=== PATIENT | female | born 1975 | race Caucasian/White ===

== ENCOUNTER 2020-01-25 17:37 | Emergency (ER) | payer BC, SELFPAY ==
[2020-01-25 17:46] VITALS: BP 118/83; PULSE 104; RESP 16; TEMP 36.2; O2SAT 98
--- NOTE | 2020-01-25 18:17 | ED.URI ---
HPI - URI/Sore Throat General Chief Complaint: Upper Respiratory Infection Stated Complaint: sore throat/moncada/ear pain/cough History of Present Illness HPI Narrative: The patient, a smoker/nondrinker grade school educator, presents with a 2-day worsening of 2-week history of scratchy throat, associated with cough. This was preceded by frontal/nasal congestion for 2 weeks; no fever measured, wheeze, earache- there is some posterior nasal drip.. Related Data Home Medications Medication Instructions Recorded Confirmed alprazolam 01/25/20 bupropion HCl mg PO 01/25/20 ergocalciferol (vitamin D2) 01/25/20 [Vitamin D2] venlafaxine mg PO 01/25/20 venlafaxine mg PO 01/25/20 Allergies Allergy/AdvReac Type Severity Reaction Status Date / Time codeine Allergy Unknown VOMITING Verified 02/15/19 10:27 Penicillins Allergy Unknown HAPPENED Verified 02/15/19 10:27 WHEN A BABY Review of Systems Review of Systems: Narrative: General/Constitutional: No weight loss,fever Eyes: N0: Redness,discharge Ears/Nose/Throat: No: Epistaxis,ear discharge Respiratory: Denies: Hemoptysis Gastrointestinal: No Vomiting, Bleeding-rectal Skin: No Lumps, eruption Neurologic: No Focal Weakness,Sz Hematologic: Denies: Petechiae/Purpura Psychiatric: No: Suicida ideationl All Other Systems: Reviewed and Negative PMFSH Comments At time of signature, agree with nursing past medical, surgical, social and family history. There is no relevant family history pertinent to the presenting complaint Exam Narrative: Exam Narrative: General Appearance: Well appearing, Well nourished EYE: PERRLA, Conjunctiva clear Ears: Auditory canal normal, TM normal Nose: Rhinorrhea, Mucousal erythema Mouth/Throat: MM moist, Uvula midline, Pharyngeal erythema Neck: Supple, No adenopathy Respiratory: No respiratory distress, Breath sounds equal, Clear to auscultation Cardiovascular: RRR, No JVD Musculoskeletal: Non tender, Normal strength Skin: Warm, Dry Neurological: A&O x3, CN II-XII intact Psychiatric: Normal mood, Normal affect Course Vital Signs Vital signs: Vital Signs Temperature 97.2 F L 01/25/20 17:46 Pulse Rate 104 H 01/25/20 17:46 Respiratory Rate 16 01/25/20 17:46 Blood Pressure 118/83 01/25/20 17:46 Pulse Oximetry 98 01/25/20 17:46 Temperature 97.2 F L 01/25/20 17:46 Pulse Rate 104 H 01/25/20 17:46 Respiratory Rate 16 01/25/20 17:46 Blood Pressure 118/83 01/25/20 17:46 Pulse Oximetry 98 01/25/20 17:46 MDM - URI/Sore Throat Lab Data Labs: Influenza A Screen Negative Reference Range: Negative Influenza B Screen Negative Reference Range: Negative Discharge Plan Discharge Clinical Impression: Pharyngitis Qualifiers: Pharyngitis/tonsillitis etiology: unspecified etiology Qualified Code(s): J02.9 - Acute pharyngitis, unspecified Patient Disposition: Home, Self-Care Condition: Stable Instructions: Antibiotic Form, Pharyngitis (ED) Prescriptions: New azithromycin 250 mg tablet See Rx Instructions .ROUTE .COMPLEX Qty: 6 RF: 0 Lidocaine Viscous 2 % solution 5 ml MUCOUS MEM QID PRN (Reason: pain) Qty: 100 RF: 0 codeine-guaifenesin 10-100 mg/5 mL liquid 7.5 ml PO Q6H PRN (Reason: cough) Qty: 118 RF: 0 No Action venlafaxine 75 mg capsule,extended release 24hr PO RF: 0 venlafaxine 150 mg capsule,extended release 24hr PO RF: 0 alprazolam 0.5 mg tablet RF: 0 ergocalciferol (vitamin D2) [Vitamin D2] 1,250 mcg (50,000 unit) capsule RF: 0 bupropion HCl 300 mg tablet extended release 24 hr PO RF: 0 Follow-up/Referrals: Aye,MIGUEL Leon [Primary Care Provider] - Stand Alone Forms: Work/School Release IP
== END 2020-01-25 18:22 | disposition home or self-care (01) ==
PROVIDERS: Emergency Provider Emergency Medicine; PCP Physician Assistant
DX: J02.9 Acute pharyngitis, unspecified (principal)
CPT/HCPCS: 87804; 99213; G0463

== ENCOUNTER → 2021-05-25 09:29 | Outpatient (CLI) | payer BC, SELFPAY ==
--- NOTE | ~2021-05-25 | XR_ITS ---
EXAMINATION: XR chest 2V DATE: 05/25/2021 09:57 INDICATION: Cough. TECHNIQUE: Frontal and lateral views of the chest were obtained. COMPARISON: Chest 2 views 07/30/2017 FINDINGS: The chest demonstrates clear lungs without pneumonia, pleural effusion, or pneumothorax. Th e heart size is normal. IMPRESSION: 1. No acute cardiopulmonary disease. Reviewed, dictated and finalized at location A.
== END ==
PROVIDERS: PCP Physician Assistant; Visit Provider Physician Assistant
DX: R05 Cough (principal)
CPT/HCPCS: 71046

== ENCOUNTER → 2022-02-16 16:35 | Outpatient (CLI) | payer BC, SELFPAY ==
--- NOTE | ~2022-02-16 | MM_ITS ---
EXAMINATION: MM screening iam BI w brooke HISTORY: Screening TECHNIQUE: Craniocaudal and mediolateral oblique 3-D tomosynthesis images were obtained and synthetic 2-D images were generated. CAD analysis was submitted and interpreted. COMPARISON: No prior mammogram is available for comparison at this institution. BREAST PARENCHYMAL COMPOSITION: The breasts are almost entirely fatty. FINDINGS: There is no evidence of suspicious mass, calcification, or architectural distortion to sugg est malignancy in either breast. There has been no suspicious interval change. IMPRESSION: 1. No mammographic evidence of malignancy. 2. Recommend routine screening mammography in one year. BI-RADS Category 1: Negative Reviewed, dictated and finalized at location A.
== END ==
PROVIDERS: PCP Physician Assistant; Visit Provider Obstetrics & Gynecology
DX: Z12.31 Encounter for screening mammogram for malignant neoplasm of breast (principal)
CPT/HCPCS: 77063; 77067

== ENCOUNTER → 2022-04-12 12:33 | Outpatient (CLI) | payer BC, SELFPAY ==
--- NOTE | ~2022-04-12 | XR_ITS ---
EXAMINATION: XR knee LT min 4V DATE: 04/12/2022 13:16 INDICATION: Left knee pain. TECHNIQUE: 4 views of left knee including standing views were obtained. COMPARISON: None. FINDINGS: Bone alignment is normal. No fracture. There is mild tricompartmental osteoarthritis charac terized by tiny osteophytes. No joint space. No knee joint effusion. IMPRESSION: 1. Mild left knee osteoarthritis. Reviewed, dictated and finalized at location B.
== END ==
PROVIDERS: PCP Physician Assistant; Visit Provider Physician Assistant
DX: M17.12 Unilateral primary osteoarthritis, left knee (principal)
CPT/HCPCS: 73564

== ENCOUNTER → 2022-08-03 15:41 | Outpatient (CLI) | payer BC, SELFPAY ==
--- NOTE | ~2022-08-03 | MR_ITS ---
EXAMINATION: MR knee LT wo con DATE: 08/03/2022 16:15 INDICATION: Left knee pain TECHNIQUE: Magnetic resonance imaging (MRI) of the left knee was performed without intravenous contra st. Sequences included coronal PD-weighted FSE, coronal PD-weighted FS FSE, sagittal T2-weighted FSE , sagittal PD-weighted FS FSE and axial PD weighted fat saturated FSE. COMPARISON: None. FINDINGS: Medial compartment: Longitudinal horizontal tear at the posterior horn of the medial meniscus with large multiloculated p lorri meniscal cyst along the periphery of the posterior horn and posterior body of the medial meniscus . The cyst measures 2.9 cm craniocaudally and 2.6 x 0.8 cm maximal transaxial dimensions. Partial-thi ckness chondral ulceration and deep fissuring without degenerative subchondral changes along the ante rior weightbearing medial femoral condyle. Shallow chondral surface regularity along the anterior asp ect of the medial tibial plateau. Lateral compartment: Lateral meniscus is normal. Articular cartilage is normal. Patellofemoral compartment: Deep chondral ulceration and fissuring with underlying cortical irregularity and subarticular cystlik e changes at the patellar apical ridge and medial facet. Additional less severe partial thickness cho ndral fissuring without degenerative subchondral changes at the medial side of the lateral patellar f acet. Trochlear cartilage is normal. Ligaments and tendons: Anterior and posterior cruciate ligaments are normal. The medial collateral ligament and fibular maira ateral ligament complex are normal. The extensor mechanism is normal. The visualized medial and later al hamstring tendons as well as the iliotibial band are normal. Fluid: Physiologic amount of fluid in the joint space. No loose osteochondral bodies identified. 1.5 x 0.9 x 0.9 cm cystic lesion in the subcutaneous fat anterior to the anterior tibial tuberosity potentially epidermoid cyst or small seroma related to prior trauma. Osseous/other: Bone alignment is normal. Aside from the cystlike changes underlying the medial patellar facet there is normal signal throughout. No fracture or pathologic marrow replacing process. IMPRESSION: 1. Longitudinal horizontal tear at the posterior horn of the medial meniscus with associated large pa ra meniscal cyst along the periphery of the posterior horn and posterior body of the medial meniscus. 2. Mild medial and patellofemoral osteoarthritis with high-grade patellar chondromalacia and moderate grade chondromalacia at the medial femoral condyle and medial tibial plateau. Reviewed, dictated and finalized at location A. IMPRESSION: 1. Longitudinal horizontal tear at the posterior horn of the medial meniscus wi th associated large para meniscal cyst along the periphery of the posterior hor n and posterior body of the medial meniscus. 2. Mild medial and patellofemoral osteoarthritis with high-grade patellar chond romalacia and moderate grade chondromalacia at the medial femoral condyle and m edial tibial plateau.
== END ==
PROVIDERS: PCP Physician Assistant; Visit Provider Orthopaedic Surgery
DX: S83.242A Other tear of medial meniscus, current injury, left knee, initial encounter (principal); M17.12 Unilateral primary osteoarthritis, left knee; M22.42 Chondromalacia patellae, left knee
CPT/HCPCS: 73721

== ENCOUNTER 2025-08-10 14:20 | Outpatient (CLI) | payer BC, SELFPAY ==
--- NOTE | ~2025-08-10 | MM_ITS ---
EXAMINATION: MM screening iam BI w brooke HISTORY: Screening TECHNIQUE: Craniocaudal and mediolateral oblique 3-D tomosynthesis images were obtained and synthetic 2-D images were generated. CAD analysis was submitted and interpreted. COMPARISON: 02/16/2022 BREAST PARENCHYMAL COMPOSITION: Not Dense: The breasts are almost entirely fatty. FINDINGS: There is no evidence of suspicious mass, calcification, or architectural distortion to suggest malignancy in either breast. [There has been no significant interval change. IMPRESSION: 1. No mammographic evidence of malignancy. Recommend routine screening mammography in one year. BI-RADS Category 1: Negative Reviewed, dictated, and finalized at [facility]. Reviewed, dictated and finalized at location Q. IMPRESSION: 1. No mammographic evidence of malignancy. Recommend routine screening mammogra phy in one year. BI-RADS Category 1: Negative
--- OUTSIDE RECORDS SUMMARY | 2025-08-10 17:19 | XMS_ITS | Encounter Summary ---
Author Organization [facility] Address 

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
--- OUTSIDE RECORDS SUMMARY | 2025-08-10 17:19 | XMS_ITS | Clinical Summary ---
Author Organization [facility] [employer] Address [address] [place] [address] Care Team Providers Care Welcome Desk Agent Name Role Phone Yobani Ware Primary Care Provider [phone] Source Comments [facility] [employer],non-owned Affiliates and Associated Physician Practices is amultiple site organization consisting of ambulatory clinics and hospital sitesin [place], [place], [place] and [place]. This disclosure is being madepursuant to the Care Everywhere program and may not contain all information available regarding this patient. Last updated 18.[facility] [employer] Allergies Active Allergy Reactions Criticality Noted Date Comments Codeine 01/19/2010 Penicillins 01/19/2010 Medications * Be aware that medications may not be up to date on this document. Alwaysverify current medications with the patient. SYNTHROID 50 MCG tablet Take 1 Tab by mouth daily before breakfast. 30 Tab 5 3 Active Additional Information Patient not taking.Reported on 10/03/2018 Fluticasone Propionate (FLONASE) 50 MCG/ACT SUSP [place] 1-2 Sprays into each nostril once daily. 1 g 3 3 Active Additional Information Patient not taking.Reported on 10/03/2018 albuterol HFA (PROVENTIL;VENTOL IN;PROAIR) 108 (90 BASE) MCG/ACT inhaler Inhale 2 Puffs by mouth every 6 hours as needed. 3 Inhaler 3 3 Active Additional Information Patient not taking.Reported on 10/03/2018 buPROPion SR 12hr (WELLBUTRIN SR) 150 MG tablet Take 150 mg by mouth 2 times daily. Active montelukast (SINGULAIR) 10 MG tablet Take 1 Tab by mouth at bedtime. 30 Tab 5 3 Active Additional Information Patient not taking.Reported on 10/03/2018 Venlafaxine HCl (EFFEXOR PO) Active azithromycin (ZITHROMAX) 250 MG tabletIndications :Acute streptococcal pharyngitis Take 2 tabs today, then 1 tab daily for next 4 days 6 tablet 8 Active Active Problems Problem Noted Date Diagnosed Date Allergic rhinitis 04/10/2011 Hyperlipidemia 06/17/2010 Hypoglycemia Resolved Problems Problem Noted Date Diagnosed Date Resolved Date HTN (hypertension) 0 Immunizations Immunization Administration Dates Next Due TDAP (7yrs+) 08/08/2013 Family History Medical History Relation Name Comments Arthritis - Osteo Father Hypertension Father Arthritis - Osteo Mother Hypertension Mother Relation Name Status Comments Father Mother Social History Tobacco Use Types Packs/Day Years Used Date Smoking Tobacco: Never Smokeless Tobacco: Never Alcohol Use Standard Drinks/Week Comments No 0 (1 standard drink = 0.6 oz pur e alcohol) Comments No Sex and Gender Information Value Date Recorded Sex Assigned at Not on file 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 Gender Identity Not on file Sexual Orientation Not on file Last Filed Vital Signs Vital Sign Reading Time Taken Comments Blood Pressure 112/72 10/03/2018 4:31 PM TRASHMAN Pulse 94 10/03/2018 4:31 PM TRASHMAN Temperature 36.5 C (97.7 F) 10/03/2018 4:31 PM TRASHMAN Respiratory Rate 16 10/03/2018 4:31 PM TRASHMAN Oxygen Saturation 98% 10/03/2018 4:31 PM TRASHMAN Inhaled Oxygen Concentration - - Weight 102.1 kg (225 lb) 10/03/2018 4:31 PM TRASHMAN Height 170.2 cm (5' 7) 10/03/2018 4:31 PM TRASHMAN Body Mass Index 35.24 10/03/2018 4:31 PM TRASHMAN Plan of Treatment Health Maintenance Due Date Last Done Comments COLOGUARD (AGES 45-75) - COL ON CA SCREENING 1977 COLON MONITORING 1977 COLONOSCOPY - COLON CA SCREENING 1977 CT COLONOGRAPHY - COLON CA SCREENING 1977 Colorectal Cancer Screening 1977 FIT - COLON CA SCREENING 1977 FLEX SIG - COLON CA SCREENING 1977 MAMMOGRAM 1977 HIV SCREENING 1992 HEPATITIS C SCREENING 01/18/1995 HEPATITIS B VACCINE (1 of 3 - 19+ 3-dose series) 1996 LIPID TESTING 08/08/2018 08/08/2013, 04/26/2010 SCREENING FOR DIABETES 10/03/2018 08/08/2013 DTAP/TDAP/TD VACCINES (2 - T d or Tdap) 08/08/2023 08/08/2013 DEPRESSION SCREENING 11/26/2024 COVID-19 VACCINE (1 - 2023-2 5 season) 2025 INFLUENZA VACCINE (#1) 2025 ZOSTER VACCINE (1 of 2) 2027 HIB VACCINE Aged Out No longer eligi ble based on patient's age to complete this topic HPV VACCINE Aged Out No longer eligi ble based on patient's age to complete this topic MENINGOCOCCAL (Group B) VACCINE SHARED DECISION-MAKING Aged Out No longer eligible based on patient's age to complete this topic MENINGOCOCCAL GROUPS A/C/Y/W VACCINE Aged Out No longer eligible b ased on patient's age to complete this topic PNEUMOCOCCAL VACCINE Aged Out No long er eligible based on patient's age to complete this topic Procedures Procedure Name Priority Date/Time Associated Diagnosis Comments COMPREHENSIVE METABOLIC PANEL Routine 08/08/2013 3:53 PM CDT Fatigue LIPID PROFILE Routine 08/08/2013 3:53 PM CDT Hyperlipidemia from Last 3 Months or Most Recently Relevant to Health Maintenance Results * (ABNORMAL) COMPREHENSIVE METABOLIC PANEL (08/08/2013 3:53 PM CDT) Glucose 80 65 - 99 mg/dL [facility] ACCOUNT BILL BUN 10 6 - 20 mg/dL [facility] ACCOUNT BILL Creatinine 0.70 0.57 - 1.00 mg/dL [facility] ACCOUNT BILL eGFR by MDRD 112 >59 mL/min/1.7 3 [facility] ACCOUNT BILL eGFR by MDRD 129 >59 mL/min/1.7 3 [facility] ACCOUNT BILL BUN/Creatinine Ratio 14 8 - 20 [facility] ACCOUNT BILL Sodium 134 134 - 144 mmol/L [facility] ACCOUNT BILL Potassium 3.8 3.5 - 5.2 mmol/L [facility] ACCOUNT BILL Chloride 99 97 - 108 mmol/L [facility] ACCOUNT BILL CO2 20 19 - 28 mmol/L [facility] ACCOUNT BILL Calcium 9.3 8.7 - 10.2 mg/dL [facility] ACCOUNT BILL Protein Total 6.3 6.0 - 8.5 g/dL [facility] ACCOUNT BILL Albumin 4.1 3.5 - 5.5 g/dL [facility] ACCOUNT BILL Globulin Total 2.2 1.5 - 4.5 g/dL [facility] ACCOUNT BILL Albumin/Globulin Ratio 1.9 1.1 - 2.5 [facility] ACCOUNT BILL Bilirubin Total 0.3 0.0 - 1.2 mg/dL [facility] ACCOUNT BILL Alkaline Phosphatase 69 42 - 107 IU/L [facility] ACCOUNT BILL AST 36 0 - 40 IU/L [facility] ACCOUNT BILL ALT 51(H) 0 - 32 IU/L [facility] ACCOUNT BILL Blood specimen (specimen) BLOOD SPECIMEN / Unknown 08/08/2013 3:53 PM CDT 08/08/2013 6:06 PM CDT Narrative Resulting Agency Comment [facility] [address] [place] [address] [phone] us Yobani Ware DO LAB - CHEMISTRY ORDERABLES F inal Result [facility] ACCOUNT BILL [address] [place] [address] * LIPID PROFILE (08/08/2013 3:53 PM CDT) Cholesterol 172 100 - 199 mg/dL [facility] ACCOUNT BILL Triglycerides 99 0 - 149 mg/dL [facility] ACCOUNT BILL HDL Cholesterol 80 >39 mg/dL [facility] ACCOUNT BILL Comment: According to ATP-III Guidelines, HDL-C >59 mg/dL is considered a negative risk factor for CHD. VLDL Calculated 20 5 - 40 mg/dL [facility] ACCOUNT BILL LDL Calculated 72 0 - 99 mg/dL [facility] ACCOUNT BILL Comment NOT NEEDED [facility] ACCOUNT BILL Comment:Ancillary determined the test is not needed Blood specimen (specimen) BLOOD SPECIMEN / Unknown 08/08/2013 3:53 PM CDT 08/08/2013 6:06 PM CDT Narrative Resulting Agency Comment [facility] [address] [phone] Yobani Ware DO LAB - CHEMISTRY ORDERABLES F inal Result [facility] ACCOUNT BILL [address] [place] [address] from Last 3 Months or Most Recently Relevant to Health Maintenance Insurance [employer] Care Teams Welcome Desk Agent Relationship Specialty Start Date End Date Yobani Ware DO [address] [place] [address] PCP - General 01/27/11
--- OUTSIDE RECORDS SUMMARY | 2025-08-10 17:19 | XMS_ITS | Encounter Summary ---
Author Organization [facility] Address 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
--- OUTSIDE RECORDS SUMMARY | 2025-08-10 17:19 | XMS_ITS | Encounter Summary ---
Author Organization [facility] Address [address] [place] [address] Care Team Providers Care Campus Manager Name Role Phone Unavailable Primary Care Provider Unavailabl e Encounter Details Date Type Department Care Team (Late st Contact Info) Description 04/30/2003 Outpatient Historical [place] [id number] [place] [id number] Mick Stanton MD Social History Tobacco Use Types Packs/Day Years Used Date Smoking Tobacco: Never Assessed Comments Unknown Sex and Gender Information Value Date Recorded Sex Assigned at Not on file Legal Sex Female 4:46 AM [employer] Gender Identity Not on file Sexual Orientation Not on file documented as of this encounter Plan of Treatment Not on file documented as of this encounter Visit Diagnoses Not on filedocumented in this encounter
== END 2025-08-10 14:21 | disposition home or self-care (01) ==
LOC: CHSIMG 14:22
PROVIDERS: PCP Physician Assistant; Visit Provider Physician Assistant
DX: Z12.31 Encounter for screening mammogram for malignant neoplasm of breast (principal)
CPT/HCPCS: 77063; 77067